=== PATIENT | female | born 1995 | race Caucasian/White ===

== ENCOUNTER 2021-10-29 01:53 | Emergency (ER) | payer MEDICAID ==
[~2021-10-29] VITALS: Ht 157.5 cm; Wt 70.3 kg
[2021-10-29 01:57] VITALS: BP_SYST 116
--- NOTE | 2021-10-29 04:12 | NUR ---
SEEN LEAVING WITH BOYFRIEND.
--- NOTE | 2021-10-29 04:15 | NUR ---
LEFT WITHOUT BEING SEEN
== END 2021-10-29 04:15 | disposition left against medical advice (07) ==
LOC: SED 01:53
DX: M25.571 Pain in right ankle and joints of right foot (principal); Z53.21 Procedure and treatment not carried out due to patient leaving prior to being seen by health care provider